=== PATIENT | male | born 1980 | race Caucasian/White ===

== ENCOUNTER 2018-10-18 08:57 | Inpatient (IN) ==
[2018-10-18] MEDS ORDERED: 0.9 % SODIUM CHLORIDE 1,000 ML IV ONE (09:01)
[2018-10-18] MEDS ORDERED: INSULIN REGULAR, HUMAN 1 UNIT/0.01 ML UNIT IV ONE (09:21)
[2018-10-18] MEDS: ONDANSETRON 4 MG/2 ML VIAL IV PRN ×2 (09:32→13:00)
[2018-10-18 09:54] LABS: Basophils # (Auto) 0 K/mcL (0.0-0.3); Basophils % (Auto) 0 % (0.0-2.0); Eosinophils # (Auto) 0 K/mcL (0.0-0.7); Eosinophils % (Auto) 0 % (0.0-7.0); Granulocytes % (Auto) 92.3 % (38.0-78.0); Lymphocytes # (Auto) 0.9 K/mcL (1.5-4.8); Lymphocytes % (Auto) 2.8 % (15.5-49.0); Mean Cell Volume 86.7 fL (80.0-100.0); Mean Corpuscular HGB Conc 32.5 g/dL (31.0-36.0); Monocytes # (Auto) 1.5 K/mcL (0.1-0.9); Monocytes % (Auto) 4.9 % (1.0-12.0); Platelet Count 416 K/mcL (140-440); RBC 5.43 M/mcL (4.50-5.90); Red Cell Distribution Width 12.8 % (11.5-14.5)
[2018-10-18] MEDS: 0.9 % SODIUM CHLORIDE 1,000 ML IV SCH ×2 (10:00→13:44)
[2018-10-18 10:11] LABS: ALT/SGPT 24 U/l (0-40); Albumin 4.7 gm/dL (3.2-5.2); Albumin/Globulin Ratio 1.6 (1.0-2.3); Alkaline Phosphatase 97 U/L (39-117); Blood Urea Nitrogen 24 mg/dl (6-20)
[2018-10-18] MEDS ORDERED: INSULIN REGULAR, HUMAN 50 UNIT in 0.9 % SODIUM CHLORIDE 99.5 ML IV SCH ×2 (10:30→13:43)
[2018-10-18 10:46] LABS: Appearance,Urine CLEAR; Bacteria,Urine 0 /hpf (0); Bilirubin,Urine NEG (NEG); Color,Urine STRAW; Glucose,Urine (UA) >=500 mg/dL (NEG); Leukocyte Esterase,Urine NEG /uL (NEG); Mucus,Urine FEW /hpf (0); Protein,Urine NEG (NEG); Specific Gravity,Urine 1.023 (1.000-1.035); Urine Blood NEG mg/dL (<0.03); Urine Hyaline Cast 1 /lpf (0-2); Urine RBC 0 /hpf (0-1); Urine Squamous Epithelial Cell 0 /hpf (0-4); Urine WBC 0 /hpf (0-4); Urobilinogen,Urine NEG (NEG)
[2018-10-18] MEDS ORDERED: PHENobarb/HYOSCY/ATROPINE/SCOP 1 DOSE BOTTLE PO ONE (11:11)
--- NOTE | 2018-10-18 11:16 | Emergency Department Note ---
Nausea/Vomiting/Diarrhea HPI - General Chief complaint: Nausea/Vomiting/Diarrhea Stated complaint: Vomiting, ran out of lantus Time Seen by Provider: 10/18/18 09:14 Source: EMS Mode of arrival: EMS Limitations: no limitations - History of Present Illness HPI Narrative: The patient is a 38-year-old male with type 1 diabetes who presents today via ambulance with his for complaints of hyperglycemia, vomiting and drifting in and out of consciousness. He and his are not currently living together but she was called this morning by him because he had been vomiting and didn't feel well. She went over to his house and reports that she saw him vomiting up dark brown-colored substance. He then collapsed on the floor and per her report was in and out of consciousness. She called 911 who brought him here. The patient states that he has been out of his Lantus for the last several days. He is normally on 38 units twice a day and then sliding scale mealtime insulin. He reports that his main symptoms right now are that his throat is burning in his having abdominal pain. Endorsing nausea and dry heaving in the room. She denies having any other significant medical illnesses. Diagnosed with type 1 diabetes 3 years ago MD complaint: nausea, vomiting, abdominal pain Onset (ago): day(s) (1) - Related Data Home Medications Medication Instructions Recorded Confirmed Insulin Aspart [Novolog] 12 unit SUB-Q QAC 08/06/18 10/18/18 Insulin Glargine, Human [Lantus] 38 unit SUB-Q QHS 08/06/18 10/18/18 Gabapentin [Neurontin] 600 mg PO PRN PRN 09/17/18 10/18/18 Allergies Allergy/AdvReac Type Severity Reaction Status Date / Time Sulfa (Sulfonamide Allergy Severe HIVES Verified 10/18/18 08:57 Antibiotics) [SULFA (SULFONAMIDE ANTIBIOTICS)] morphine AdvReac Mild Agitated Verified 10/18/18 08:57 Review of Systems All systems ED: reviewed and negative except as stated. Past Medical History - Past Medical History Attestation: Yes: The following information was validated with the patient. Source: obtained from family Medical history: Reports: DM Psychiatric history: Reports: no psych history Surgical history ED: Reports: no surgical history - Social History smoking status: Never smoker Alcohol use: Reports: Rarely Drug use: Reports: none Physical Exam Limitations: no limitations General appearance: alert, anxious, other (appears uncomfortable, curled up in a ball and holding his stomach) Head: atraumatic, normocephalic Eye: Present: normal appearance ENT: normal exam Neck: Present: normal inspection Chest: Present: normal inspection Respiratory: Present: normal lung sounds bilaterally Cardiovascular: Present: tachycardia Abdominal: Present: soft, tenderness. Absent: distention Abdominal tenderness: Present: diffuse Extremities: Present: normal inspection Back: Present: normal inspection Neurological: Present: alert Psychiatric: Present: agitated, anxious, flat affect Skin: Present: warm Course Course Narrative: Patient presenting with elevated blood glucose greater than 500 with symptoms of abdominal pain, dry heaving and vomiting. He has been out of his Lantus for several days now. He was started on normal saline IV fluids and given 10 units insulin rapid push. DKA workup was started with an ABG drawn, lab work and urinalysis. Given Zofran for nausea. - Reevaluation(s) Reevaluation #1: ABG returned showing pH of 7.24, bicarbonate of 9.4, lactate of 5.3. His white count came back elevated at 31.4. Beta hydroxybutyrate name elevated at 6.9. Symptoms settled with DKA and is supported by lab work. DKA protocol was ordered and patient was started on the insulin drip at 10 units an hour based on his weight. We are checking potassium every 2 hours. Initial potassium was 5.4. Glucose checks every hour. A consultation with the hospitalist who graciously agreed to admit the patient to the ICU for further management. Vital Signs Temperature 99.1 F H 10/18/18 08:58 Pulse Rate 127 H 10/18/18 08:58 Respiratory Rate 22 10/18/18 08:58 Blood Pressure 156/91 10/18/18 08:58 Pulse Oximetry (%) 100 10/18/18 08:58 Temperature 99.1 F H 10/18/18 08:58 Pulse Rate 112 H 10/18/18 10:14 Respiratory Rate 19 10/18/18 10:14 Blood Pressure 127/63 10/18/18 10:14 Pulse Oximetry (%) 100 10/18/18 10:14 Nausea/Vomiting/Diarrhea - [facility] Narrative Medical decision making narrative: DKA. - Lab Data Lab results reviewed: Yes I reviewed the patient's lab results. Result diagrams: 10/18/18 09:16 10/18/18 09:16 Lab Results 10/18/18 10/18/18 10/18/18 Range/Units 09:16 09:16 09:16 WBC 31.4 H* (4.5-11.0) K/mcL RBC 5.43 (4.50-5.90) M/mcL Hgb 15.3 (13.5-16.5) g/dL Hct 47.0 (41.0-55.0) % MCV 86.7 (80.0-100.0) fL MCH 28.2 (26.0-34.0) pg MCHC 32.5 (31.0-36.0) g/dL RDW 12.8 (11.5-14.5) % Plt Count 416 (140-440) K/mcL MPV 10.3 (7.4-10.4) fL Gran % 92.3 H (38.0-78.0) % Lymph % (Auto) 2.8 L (15.5-49.0) % [place] % (Auto) 4.9 (1.0-12.0) % Eos % (Auto) 0 (0.0-7.0) % Baso % (Auto) 0 (0.0-2.0) % Gran # 28.9 H (1.8-8.0) K/mcL Lymph # (Auto) 0.9 L (1.5-4.8) K/mcL [place] # (Auto) 1.5 H (0.1-0.9) K/mcL Eos # (Auto) 0 (0.0-0.7) K/mcL Baso # (Auto) 0 (0.0-0.3) K/mcL Sodium 137 (133-145) mmol/L Potassium 5.4 H (3.3-5.1) mmol/L Chloride 90 L (96-108) mmol/L Carbon Dioxide 12 L (22-30) mmol/L Anion Gap 35.0 H (8-16) BUN 24 H (6-20) mg/dl Creatinine 1.2 (0.7-1.2) mg/dl GFR Calculation 76 Glucose 610 H* (70-105) mg/dL Calcium 9.7 (8.6-10.4) mg/dl Total Bilirubin 0.8 (0.0-1.0) mg/dL AST 12 (0-37) U/l ALT 24 (0-40) U/l Alkaline Phosphatase 97 (39-117) U/L Total Protein 7.6 (5.9-8.4) gm/dL Albumin 4.7 (3.2-5.2) gm/dL Globulin 2.9 (2.2-3.7) gm/dL Albumin/Globulin Ratio 1.6 (1.0-2.3) Beta-Hydroxybutyrate 6.99 H (< 0.27) mmol/L Urine Color Urine Appearance Urine pH (5.0-9.0) Ur Specific [place] (1.000-1.035) Urine Protein (NEG) mg/dL Urine Glucose (UA) (NEG) mg/dL Urine Ketones (NEG) mg/dL Urine Occult Blood (<0.03) mg/dL Urine Nitrate (NEG) Urine Bilirubin (NEG) mg/dL Urine Urobilinogen (NEG) mg/dL Ur Leukocyte Esterase (NEG) /uL Urine RBC (0-1) /hpf Urine WBC (0-4) /hpf Ur Squamous Epith Cells (0-4) /hpf Urine Bacteria (0) /hpf Hyaline Casts (0-2) /lpf Urine Mucus (0) /hpf Ur Culture Indicated? 10/18/18 Range/Units 09:35 WBC (4.5-11.0) K/mcL RBC (4.50-5.90) M/mcL Hgb (13.5-16.5) g/dL Hct (41.0-55.0) % MCV (80.0-100.0) fL MCH (26.0-34.0) pg MCHC (31.0-36.0) g/dL RDW (11.5-14.5) % Plt Count (140-440) K/mcL MPV (7.4-10.4) fL Gran % (38.0-78.0) % Lymph % (Auto) (15.5-49.0) % [place] % (Auto) (1.0-12.0) % Eos % (Auto) (0.0-7.0) % Baso % (Auto) (0.0-2.0) % Gran # (1.8-8.0) K/mcL Lymph # (Auto) (1.5-4.8) K/mcL [place] # (Auto) (0.1-0.9) K/mcL Eos # (Auto) (0.0-0.7) K/mcL Baso # (Auto) (0.0-0.3) K/mcL Sodium (133-145) mmol/L Potassium (3.3-5.1) mmol/L Chloride (96-108) mmol/L Carbon Dioxide (22-30) mmol/L Anion Gap (8-16) BUN (6-20) mg/dl Creatinine (0.7-1.2) mg/dl GFR Calculation Glucose (70-105) mg/dL Calcium (8.6-10.4) mg/dl Total Bilirubin (0.0-1.0) mg/dL AST (0-37) U/l ALT (0-40) U/l Alkaline Phosphatase (39-117) U/L Total Protein (5.9-8.4) gm/dL Albumin (3.2-5.2) gm/dL Globulin (2.2-3.7) gm/dL Albumin/Globulin Ratio (1.0-2.3) Beta-Hydroxybutyrate (< 0.27) mmol/L Urine Color Straw Urine Appearance Clear Urine pH 5.0 (5.0-9.0) Ur Specific [place] 1.023 (1.000-1.035) Urine Protein Neg (NEG) mg/dL Urine Glucose (UA) >=500 A (NEG) mg/dL Urine Ketones 80 A (NEG) mg/dL Urine Occult Blood Neg (<0.03) mg/dL Urine Nitrate Neg (NEG) Urine Bilirubin Neg (NEG) mg/dL Urine Urobilinogen Neg (NEG) mg/dL Ur Leukocyte Esterase Neg (NEG) /uL Urine RBC 0 (0-1) /hpf Urine WBC 0 (0-4) /hpf Ur Squamous Epith Cells 0 (0-4) /hpf Urine Bacteria 0 (0) /hpf Hyaline Casts 1 (0-2) /lpf Urine Mucus Few (0) /hpf Ur Culture Indicated? No Disposition Pt seen by BIOLOGICAL TECHNICIAN/PA only: No Clinical Impression: DKA (diabetic ketoacidoses) Disposition: Xfer As Inpt ([facility]) Referrals: Lien Chen ARNP [Primary Care Provider] -
--- NOTE | 2018-10-18 13:11 | Internal Med History&Physical ---
Medical - H&P: [facility] Patient information: Note initiated : 10/18/18 at 1:08 pm Service Date, if different from initiated Date: [] Patient: Rosaura Scruggs a 38 y/o M admitted on for Vomiting, Ran Out Of Lantus. Chief Complaint: [] History of present illness: Mr. Scruggs is a 38 year old M presents to The ED with nausea vomiting abdominal pain. Patient states he ran out of his insulin about 3 4 days ago he called his pharmacy to get the medication and has not arrived yet apparently. He was trying to maintain his blood glucose with a sliding scale coverage and his blood glucose was trending up. Yesterday he developed nausea vomiting an achy burning abdominal pain. As well as some diarrhea which happens occasionally for him. Prior to running out of his insulin he was feeling fine no recent illnesses or complaints. He feels quite lethargic and weak. His called 911 who brought him in. Denies any chest pain coughing or shortness of breath. No headaches fevers or chills. In the ED he was found to be in DKA started on insulin drip and IV fluid boluses. He does seem to feel a little bit better but still quite lethargic and does have abdominal pain and nausea. Review of Systems: Pertinent positives as above. Denies headache/fever/chills/chest pain/cough/dyspnea. Remaining 10 point review of systems reviewed negative Medical - H&P: PMH Medical history: Past medical history: Diabetes type 1, chronic low back pain Past surgical history: Appendectomy and removal of a neck cyst Family history: His mother was healthy and he did not know his father Social history: Patient quit smoking 3 years ago denies alcohol use lives with a roommate. Medical - H&P: Meds Home Medications Medication Instructions Recorded Confirmed Type Insulin Aspart [Novolog] 12 unit SUB-Q QAC 08/06/18 10/18/18 History Insulin Glargine, Human [Lantus] 38 unit SUB-Q QHS 08/06/18 10/18/18 History Gabapentin [Neurontin] 600 mg PO PRN PRN 09/17/18 10/18/18 History Allergies Allergy/AdvReac Type Severity Reaction Status Date / Time Sulfa (Sulfonamide Allergy Severe HIVES Verified 10/18/18 08:57 Antibiotics) [SULFA (SULFONAMIDE ANTIBIOTICS)] morphine AdvReac Mild Agitated Verified 10/18/18 08:57 Medical - H&P: Exam - Constitutional Vitals: Temp Pulse Resp BP Pulse Ox 99.1 F H 123 H 25 H 128/72 99 10/18/18 08:58 10/18/18 13:05 10/18/18 13:05 10/18/18 13:05 10/18/18 13:05 Exam: General: Lethargic, No acute Distress Eyes/N/T: EOMI, PEERL, DMM Head/Neck: neck supple, normocephalic atraumatic CV: Tachycardic but regular, No murmurs, normal s1/s2 Pulm: Clear b/l, no wheezing/rhonchi/rales Abd: soft, tenderness to palpation throughout , decreased bowel sounds x4 Ext: no clubbing/cyanosis/edema Neuro: Lethargic, no focal deficits, moves all extremities, CN 2-12 grossly intact, symmetrical strength b/l upper/lower, sensations intact b/l upper/lower Skin: warm/dry Medical - H&P: Reslt - Labs CBC & Chem 7: 10/18/18 09:16 10/18/18 09:16 Labs: Short CBC 10/18/18 Range/Units 09:16 WBC 31.4 H* (4.5-11.0) K/mcL Hgb 15.3 (13.5-16.5) g/dL Hct 47.0 (41.0-55.0) % Plt Count 416 (140-440) K/mcL BMP 10/18/18 09:16 Sodium 137 Potassium 5.4 H Chloride 90 L Carbon Dioxide 12 L BUN 24 H Creatinine 1.2 Glucose 610 H* Calcium 9.7 Liver Function 10/18/18 Range/Units 09:16 Total Bilirubin 0.8 (0.0-1.0) mg/dL AST 12 (0-37) U/l ALT 24 (0-40) U/l Alkaline Phosphatase 97 (39-117) U/L Albumin 4.7 (3.2-5.2) gm/dL Urine 10/18/18 Range/Units 09:35 Urine Color Straw Urine Appearance Clear Urine pH 5.0 (5.0-9.0) Ur Specific [place] 1.023 (1.000-1.035) Urine Protein Neg (NEG) mg/dL Urine Glucose (UA) >=500 A (NEG) mg/dL Medical - H&P: A/P - Narrative A/P Narrative: A: *DKA: 2/2 Running out of insulin *Metabolic acidosis: Secondary to above *Prerenal azotemia: *Volume depletion: *Mild hyperkalemia: *Leukocytosis: Likely reactive * P: -IV fluid aggressive hydration -Insulin drip, DKA protocol -Monitor electrolytes closely -f/u lactate - -ppx: Lovenox/Pepcid
[2018-10-18] MEDS ORDERED: GABAPENTIN 300 MG CAPSULE PO PRN (13:43)
[2018-10-18] MEDS ORDERED: PROMETHAZINE 25 MG/ML VIAL IV PRN (13:43)
[2018-10-18] MEDS ORDERED: 0.9 % SODIUM CHLORIDE 1,000 ML IV SCH ×3 (13:43→20:00)
[2018-10-18] MEDS ORDERED: BENZOCAINE/MENTHOL 1 LOZENGE PO PRN (13:43)
[2018-10-18] MEDS ORDERED: ONDANSETRON 4 MG/2 ML VIAL IV PRN (13:43)
[2018-10-18] MEDS: 0.9 % SODIUM CHLORIDE 10 ML SYRINGE IV SCH ×2 (14:00→21:07)
[2018-10-18 14:29] LABS: ABG Methemoglobin 0.2 % (0.4-1.5); VBG HCO3 17.7 mmol/L (24.0-28.0); VBG Oxygen Saturation 88.5 % (40.0-70.0); VBG PCO2 33.5 mmHg (41.0-51.0); VBG PH 7.34 U (7.32-7.42); VBG PO2 65 mmHg (25-40); VBG Total CO2 18.7 mmol/L (25.0-29.0)
[2018-10-18 14:51] LABS: ALT/SGPT 22 U/l (0-40); Albumin 4.3 gm/dL (3.2-5.2); Albumin/Globulin Ratio 1.7 (1.0-2.3); Alkaline Phosphatase 84 U/L (39-117); Bilirubin,Direct < 0.2 mg/dL (0.0-0.3); Blood Urea Nitrogen 23 mg/dl (6-20); Gamma Glutamyl Transpeptidase 19 U/L (8-61); Uric Acid 7.2 mg/dL (2.5-8.0)
[2018-10-18] MEDS ORDERED: POTASSIUM PHOSPHATE 40 MEQ in DEXTROSE 5% IN WATER 500 ML IV ONE (15:09)
[2018-10-18] MEDS ORDERED: DEXTROSE 5%-NS 1,000 ML IV SCH (17:15)
[2018-10-18 19:08] LABS: ALT/SGPT 19 U/l (0-40); Albumin 4.2 gm/dL (3.2-5.2); Albumin/Globulin Ratio 1.8 (1.0-2.3); Alkaline Phosphatase 79 U/L (39-117); Bilirubin,Direct < 0.2 mg/dL (0.0-0.3); Blood Urea Nitrogen 23 mg/dl (6-20); Gamma Glutamyl Transpeptidase 14 U/L (8-61); Uric Acid 7.1 mg/dL (2.5-8.0)
[2018-10-18] MEDS ORDERED: PHOSPHORUS 250 MG TABLET PO ONE (20:05)
[2018-10-18] MEDS: 0.45 % SODIUM CHLORIDE 1,000 ML IV SCH (20:32)
[2018-10-18] MEDS: ACETAMINOPHEN 325 MG TABLET PO PRN (20:40)
[2018-10-18] MEDS ORDERED: INSULIN GLARGINE, HUMAN 1 UNIT/0.01 ML SQ SCH (21:00)
[2018-10-18] MEDS: FAMOTIDINE/PF 20 MG/2 ML VIAL IV SCH (21:01)
[2018-10-19] MEDS: INSULIN LISPRO 1 UNIT/0.01 ML UNIT SQ SCH ×7 (00:18→22:00)
[2018-10-19] MEDS: 0.45 % SODIUM CHLORIDE 1,000 ML IV SCH (03:30)
[2018-10-19] MEDS: 0.9 % SODIUM CHLORIDE 10 ML SYRINGE IV SCH ×4 (05:17→22:04)
[2018-10-19 06:31] LABS: Basophils # (Auto) 0 K/mcL (0.0-0.3); Basophils % (Auto) 0 % (0.0-2.0); Eosinophils # (Auto) 0 K/mcL (0.0-0.7); Eosinophils % (Auto) 0 % (0.0-7.0); Granulocytes % (Auto) 86.4 % (38.0-78.0); Lymphocytes # (Auto) 1.7 K/mcL (1.5-4.8); Lymphocytes % (Auto) 7.9 % (15.5-49.0); Mean Cell Volume 86.9 fL (80.0-100.0); Mean Corpuscular HGB Conc 32.8 g/dL (31.0-36.0); Monocytes # (Auto) 1.3 K/mcL (0.1-0.9); Monocytes % (Auto) 5.7 % (1.0-12.0); Platelet Count 291 K/mcL (140-440); RBC 4.42 M/mcL (4.50-5.90); Red Cell Distribution Width 13.4 % (11.5-14.5)
[2018-10-19] MEDS ORDERED: INSULIN REGULAR, HUMAN 50 UNIT in 0.9 % SODIUM CHLORIDE 99.5 ML IV PRN ×2 (06:45→10:37)
[2018-10-19 07:12] LABS: ALT/SGPT 16 U/l (0-40); Albumin 3.7 gm/dL (3.2-5.2); Albumin/Globulin Ratio 1.9 (1.0-2.3); Alkaline Phosphatase 72 U/L (39-117); Bilirubin,Direct < 0.2 mg/dL (0.0-0.3); Blood Urea Nitrogen 17 mg/dl (6-20); Gamma Glutamyl Transpeptidase 10 U/L (8-61); Uric Acid 5.9 mg/dL (2.5-8.0)
--- NOTE | 2018-10-19 07:17 | Internal Med Progress Note ---
Medical - PN: Subj Patient information: Note initiated : 10/19/18 at 7:11 am Service Date, if different from initiated Date: [] Patient: Rosaura Scruggs a 38 y/o M admitted on 10/18/18 for Vomiting, Ran Out Of Lantus. Chief Complaint: [] Interval history: Mr. Scruggs is a 38 year old M presents to The ED with nausea vomiting abdominal pain. Patient states he ran out of his insulin about 3 4 days ago he called his pharmacy to get the medication and has not arrived yet apparently. He was trying to maintain his blood glucose with a sliding scale coverage and his blood glucose was trending up. Yesterday he developed nausea vomiting an achy burning abdominal pain. As well as some diarrhea which happens occasionally for him. Prior to running out of his insulin he was feeling fine no recent illnesses or complaints. He feels quite lethargic and weak. His called 911 who brought him in. Denies any chest pain coughing or shortness of breath. No headaches fevers or chills. In the ED he was found to be in DKA started on insulin drip and IV fluid boluses. He does seem to feel a little bit better but still quite lethargic and does have abdominal pain and nausea. 15 Feeling better. Has heartburn, no abdominal pain. No vomiting. Does have a headache. Review of Systems: denies fever/chills/nausea/vomiting/abdominal pain/cough/dyspnea/diarrhea. Otherwise see above. - Constitutional Vitals: Vital Signs Temp Pulse Resp BP Pulse Ox 98.8 F 76 18 135/78 100 10/19/18 00:00 10/19/18 04:00 10/19/18 04:20 10/19/18 04:00 10/19/18 04:00 Period Temp Pulse Resp BP Sys/[place] Pulse Ox Last 24 Hr 98.8 F-100.8 F 71-131 11-29 103-156/55-131 96-100 Intake and Output 10/18/18 10/19/18 10/19/18 21:59 05:59 13:59 Intake Total 1744 1150 Output Total 250 275 Balance 1494 875 Weight 98.933 kg Intake & Output: Intake & Output 10/18/18 10/19/18 10/19/18 21:59 05:59 13:59 Intake Total 1744 1150 Output Total 250 275 Balance 1494 875 Weight 98.933 kg Intake: IV 1214 1000 Sodium Chloride 0.45% 1,000 ml 1000 @ 150 mls/hr IV .Q6H40M [facility] Rx# :[id number] Sodium Chloride 0.9% 1,000 ml @ 1018 150 mls/hr IV .Q6H40M [facility] Rx#: [id number] HumuLIN R 50 UNIT In Sodium 183 Chloride 0.9% 99.5 ml @ 10 UNIT /HR 20 mls/hr IV DUR [facility] Rx#: [id number] Oral 530 150 Output: Void Amount 250 275 Other: Meal Dinner Percent of Meal Consumed 75% Feeding Ability Assist with Tray Set Up Urine Color Dark Yellow Dark Yellow Urine Odor Strong Strong Exam: General: awake, No acute Distress Eyes/N/T: EOMI, , Head/Neck: neck supple, CV: RRR, No murmurs, Pulm: Clear b/l, no wheezing/rhonchi/rales Abd: soft, +BSx4 Ext: no clubbing/cyanosis/edema Neuro: awake, no focal deficits, moves all extremities, Skin: warm/dry Medical - PN: Obj Da - Labs CBC & Chem 7: 10/19/18 03:55 10/19/18 03:55 Labs: Abnormal Lab Results 10/19/18 10/18/18 10/18/18 03:55 18:00 14:00 WBC 22.1 H RBC 4.42 L Hgb 12.6 L Hct 38.4 L Gran % 86.4 H Lymph % (Auto) 7.9 L Gran # 19.1 H Lymph # (Auto) [place] # (Auto) 1.3 H ABG Methemoglobin VBG pCO2 VBG pO2 VBG HCO3 VBG Total CO2 VBG O2 Saturation VBG Base Excess VBG Lactic Acid < 0.2 L Carboxyhemoglobin Potassium Chloride Carbon Dioxide POC Total CO2 Anion Gap POC BUN BUN 23 H Creatinine Glucose 208 H POC Glucose POC WB Ioniz Calcium Phosphorus 1.9 L Triglycerides Beta-Hydroxybutyrate Urine Glucose (UA) Urine Ketones 10/18/18 10/18/18 10/18/18 14:00 13:59 11:21 WBC RBC Hgb Hct Gran % Lymph % (Auto) Gran # Lymph # (Auto) [place] # (Auto) ABG Methemoglobin 0.2 L VBG pCO2 33.5 L VBG pO2 65 H VBG HCO3 17.7 L VBG Total CO2 18.7 L VBG O2 Saturation 88.5 H VBG Base Excess -7.0 L VBG Lactic Acid Carboxyhemoglobin 3.6 H Potassium Chloride Carbon Dioxide 17 L POC Total CO2 14 L Anion Gap 20.0 H POC BUN 25 H BUN 23 H Creatinine 1.3 H Glucose 308 H POC Glucose 448 H POC WB Ioniz Calcium 1.13 L Phosphorus 1.6 L Triglycerides 152 H Beta-Hydroxybutyrate Urine Glucose (UA) Urine Ketones 10/18/18 10/18/18 10/18/18 09:35 09:16 09:16 WBC RBC Hgb Hct Gran % Lymph % (Auto) Gran # Lymph # (Auto) [place] # (Auto) ABG Methemoglobin VBG pCO2 VBG pO2 VBG HCO3 VBG Total CO2 VBG O2 Saturation VBG Base Excess VBG Lactic Acid Carboxyhemoglobin Potassium 5.4 H Chloride 90 L Carbon Dioxide 12 L POC Total CO2 Anion Gap 35.0 H POC BUN BUN 24 H Creatinine Glucose 610 H* POC Glucose POC WB Ioniz Calcium Phosphorus Triglycerides Beta-Hydroxybutyrate 6.99 H Urine Glucose (UA) >=500 A Urine Ketones 80 A 10/18/18 09:16 WBC 31.4 H* RBC Hgb Hct Gran % 92.3 H Lymph % (Auto) 2.8 L Gran # 28.9 H Lymph # (Auto) 0.9 L [place] # (Auto) 1.5 H ABG Methemoglobin VBG pCO2 VBG pO2 VBG HCO3 VBG Total CO2 VBG O2 Saturation VBG Base Excess VBG Lactic Acid Carboxyhemoglobin Potassium Chloride Carbon Dioxide POC Total CO2 Anion Gap POC BUN BUN Creatinine Glucose POC Glucose POC WB Ioniz Calcium Phosphorus Triglycerides Beta-Hydroxybutyrate Urine Glucose (UA) Urine Ketones Meds: Medications Acetaminophen (Tylenol) 650 mg PO Q4-6HP PRN PRN Reason: PAIN/FEVER > 101 Last Admin: 10/18/18 20:40 Dose: 650 mg Documented by: Diagnostic Test (Pha) (Accu-Chek) 1 each FS Q4 [facility] Enoxaparin Sodium (Lovenox) 40 mg SQ DAILY [facility] Famotidine (Pepcid) 20 mg IV Q12 [facility] Last Admin: 10/18/18 21:01 Dose: 20 mg Documented by: Gabapentin (Neurontin) 600 mg PO PRN PRN PRN Reason: Pain Sodium Chloride (Sodium Chloride 0.45%) 1,000 mls @ 150 mls/hr IV .Q6H40M [facility] Stop: 10/19/18 09:34 Last Admin: 10/19/18 03:30 Dose: 150 mls/hr Documented by: Insulin Human Regular 50 unit/ (Sodium Chloride) 100 mls @ 20 mls/hr IV Q12HP PRN; Protocol PRN Reason: HYPERGLYCEMIA Insulin Glargine (Lantus) 38 unit SQ QHS [facility] Last Admin: 10/18/18 19:50 Dose: 38 units Documented by: Insulin Human Lispro (Humalog) 0 unit SQ Q4 [facility]; Protocol Last Admin: 10/19/18 04:11 Dose: 6 units Documented by: Morphine Sulfate (Morphine) 1 - 2 mg IV Q3HP PRN PRN Reason: PAIN LEVEL > 6 Ondansetron HCl (Zofran) 4 mg IV Q4-6HP PRN PRN Reason: Nausea And Vomiting Promethazine HCl (Phenergan) 12.5 mg IV Q4-6HP PRN PRN Reason: Nausea And Vomiting Last Admin: 10/18/18 14:00 Dose: 12.5 mg Documented by: Sodium Chloride (Saline Flush) 10 ml IV Q8 [facility] Last Admin: 10/19/18 05:17 Dose: 10 ml Documented by: Throat Lozenges (Cepacol) 1 lozenge PO PRN PRN PRN Reason: Sore Throat - ABG Interpretation ABG results: 10/18/18 13:59 ABG Methemoglobin 0.2 L VBG pH 7.34 VBG pCO2 33.5 L VBG pO2 65 H VBG HCO3 17.7 L VBG Total CO2 18.7 L VBG O2 Saturation 88.5 H VBG Base Excess -7.0 L Medical - PN: A/P - Time Spent With Patient Total time spent is greater than 50% in coordination of care (as documented) at patient's floor/unit and/or counseling patient: - Narrative A/P Narrative: A: *DKA: 2/2 Running out of insulin -A1c 8.2 *Metabolic acidosis: Secondary to above, resolved *Prerenal azotemia: improved *Volume depletion: resolved *Mild hyperkalemia: resolved *Leukocytosis: no bandemia, Likely reactive; improving w/o abx. CXR/UA unremarkable *hypophos: P: -finish IVF's, advance diet as tolerated -off Insulin drip to basal and SSI -titrate insulin -replete electrolytes - -ppx: Lovenox/Pepcid Medical - PN: Qual - Stroke Symptom Onset Unknown: No - VTE Deep Vein Thrombosis/Pulmonary Embolism Present on Admission: No
[2018-10-19 08:15] LABS: Band Neutrophils % 2 % (0-10); Lymphocytes % 13 % (15-49); Monocytes % (Manual) 5 % (1-12); Platelet Estimate NORMAL (NORMAL); RBC Morphology NORMAL (NORMAL); Segmented Neutrophils % 80 % (38-78)
[2018-10-19] MEDS: FAMOTIDINE/PF 20 MG/2 ML VIAL IV SCH ×2 (08:20→22:03)
--- NOTE | 2018-10-19 08:22 | XRay Report ---
CLINICAL INFORMATION: leukocytosis COMPARISON: 04/10/2016 FINDINGS: The heart size, mediastinum and pulmonary vessels are unremarkable. The lungs are clear. There are no effusions. The bones and soft tissues are within normal limits. IMPRESSION: Normal chest. Interpreted and Authenticated by: Derick William 10/19/18
[2018-10-19 08:28] LABS: Hemoglobin A1C 8.2 % HGB (4.0-6.0)
[2018-10-19] MEDS ORDERED: NEUTRA PHOS 1 PACKET PO SCH ×2 (09:00→21:00)
[2018-10-19] MEDS ORDERED: ENOXAPARIN 40 MG/0.4 ML SYRINGE SQ SCH (09:00)
[2018-10-19] MEDS: ACETAMINOPHEN 325 MG TABLET PO PRN ×2 (10:08→16:24)
[2018-10-19] MEDS ORDERED: CALCIUM CARBONATE 500 MG TAB.CHEW CHEWED PRN ×2 (10:22→10:37)
[2018-10-19] MEDS ORDERED: PROMETHAZINE 25 MG/ML VIAL IV PRN (10:37)
[2018-10-19] MEDS ORDERED: ONDANSETRON 4 MG/2 ML VIAL IV PRN (10:37)
[2018-10-19] MEDS ORDERED: BENZOCAINE/MENTHOL 1 LOZENGE PO PRN (10:37)
[2018-10-19] MEDS ORDERED: GABAPENTIN 300 MG CAPSULE PO PRN (10:37)
[2018-10-19] MEDS ORDERED: NAPROXEN 250 MG TABLET PO ONE (11:12)
--- NOTE | 2018-10-19 11:20 | Discharge Summary ---
Medical - DS: Prov Patient information: Note initiated : 10/19/18 at 11:18 am Service Date, if different from initiated Date: [] Patient: Rosaura Scruggs 38 y/o M admitted on 10/18/18 for Vomiting, Ran Out Of Lantus. Chief Complaint: [] Date of admission: 10/18/18 13:20 Discharge date: 10/20/18 Primary care physician: Lien Chen Consults: 10/18/18 Consult to Physician [CONS] Stat Comment: Consulting Provider: Doug Prajapati Reason For Exam: Physician to Consult Medical - DS: Meds - Discharge Medications Active and Home Medications: Home Medications Insulin Aspart [Novolog] 12 unit SUB-Q QAC 08/06/18 [History Confirmed 10/18/18 Last Taken 08/06/18 02:30] Insulin Glargine, Human [Lantus] 38 unit SUB-Q QHS 08/06/18 [History Confirmed 10/18/18 Last Taken 08/05/18 17:00] Gabapentin [Neurontin] 600 mg PO BIDP PRN 09/17/18 [History Confirmed 10/19/18 Last Taken Unknown] Medical - DS: Hosp Hospital course: Mr. Scruggs is a 38 year old M Mr. Scruggs is a 38 year old M presents to The ED with nausea vomiting abdominal pain. Patient states he ran out of his insulin about 3 4 days ago he called his pharmacy to get the medication and has not arrived yet apparently. He was trying to maintain his blood glucose with a sliding scale coverage and his blood glucose was trending up. Yesterday he developed nausea vomiting an achy burning abdominal pain. As well as some diarrhea which happens occasionally for him. Prior to running out of his insulin he was feeling fine no recent illnesses or complaints. He feels quite lethargic and weak. His called 911 who brought him in. Denies any chest pain coughing or shortness of breath. No headaches fevers or chills. In the ED he was found to be in DKA started on insulin drip and IV fluid boluses. He does seem to feel a little bit better but still quite lethargic and does have abdominal pain and nausea. 10/19 Feeling better. Has heartburn, no abdominal pain. No vomiting. Does have a headache. 10/20 Continues to feel better still has sore throat but improving. Tolerating diet. Stable for discharge. Discharge diagnosis: DKA volume depletion metabolic acidosis prerenal azotemia electrolyte abnor - Time Spent with Patient Total time spent providing and/or coordinating discharge services: Greater than 30 minutes Medical - DS: Exam - Constitutional Vitals: Vital Signs Temp Pulse Pulse Resp BP BP BP 10/19/18 08:03 98.6 F 78 19 136/94 10/19/18 04:20 18 10/19/18 04:15 14 10/19/18 04:10 18 10/19/18 04:05 15 10/19/18 04:00 76 18 135/78 10/19/18 02:00 71 17 10/19/18 00:00 98.8 F 83 19 123/79 10/18/18 22:45 17 10/18/18 22:40 17 10/18/18 22:35 19 10/18/18 22:30 17 10/18/18 22:25 17 10/18/18 22:00 18 10/18/18 21:45 18 10/18/18 21:40 18 10/18/18 21:35 18 10/18/18 21:30 17 10/18/18 21:25 17 10/18/18 21:20 17 10/18/18 21:15 17 10/18/18 21:10 18 10/18/18 21:05 21 10/18/18 21:01 18 10/18/18 21:00 18 112/70 10/18/18 20:55 19 10/18/18 20:50 15 10/18/18 20:45 21 10/18/18 20:40 17 10/18/18 20:35 18 10/18/18 20:30 18 10/18/18 20:25 19 10/18/18 20:20 17 10/18/18 20:15 17 10/18/18 20:10 18 10/18/18 20:05 18 10/18/18 20:01 18 10/18/18 20:00 100.8 F H 83 17 113/76 10/18/18 19:55 17 10/18/18 19:50 18 10/18/18 19:45 20 10/18/18 19:40 17 10/18/18 19:35 21 10/18/18 19:30 24 H 10/18/18 19:25 16 10/18/18 19:20 18 10/18/18 19:15 16 10/18/18 19:10 17 10/18/18 19:05 21 10/18/18 19:01 15 10/18/18 19:00 17 116/64 10/18/18 18:55 19 10/18/18 18:50 19 10/18/18 18:45 20 10/18/18 18:40 20 10/18/18 18:35 21 10/18/18 18:30 15 10/18/18 18:25 19 10/18/18 18:21 19 10/18/18 18:20 22 114/76 10/18/18 18:15 16 10/18/18 18:10 14 10/18/18 18:05 19 10/18/18 18:00 18 10/18/18 17:55 11 L 10/18/18 17:50 21 10/18/18 17:45 19 10/18/18 17:40 11 L 10/18/18 17:35 17 10/18/18 17:30 16 114/76 10/18/18 17:25 17 10/18/18 17:20 16 10/18/18 17:15 92 H 15 10/18/18 17:10 97 H 16 10/18/18 17:05 90 15 10/18/18 17:01 91 H 17 10/18/18 17:00 96 H 17 117/69 10/18/18 16:55 96 H 16 10/18/18 16:50 100 H 18 10/18/18 16:45 96 H 18 10/18/18 16:40 100 H 16 10/18/18 16:35 95 H 18 10/18/18 16:30 93 H 17 10/18/18 16:25 98 H 17 10/18/18 16:20 91 H 17 10/18/18 16:15 94 H 17 10/18/18 16:10 93 H 17 10/18/18 16:05 102 H 20 10/18/18 16:01 100 H 15 104/83 10/18/18 16:00 99.5 F H 111 H 21 10/18/18 15:55 99 H 16 10/18/18 15:50 98 H 16 10/18/18 15:45 111 H 16 10/18/18 15:40 100 H 17 10/18/18 15:35 99 H 16 10/18/18 15:30 100 H 16 10/18/18 15:25 98 H 16 10/18/18 15:20 97 H 16 10/18/18 15:15 99 H 16 10/18/18 15:10 94 H 16 104/83 10/18/18 15:05 95 H 17 10/18/18 15:03 97 H 15 103/55 10/18/18 15:00 97 H 17 10/18/18 14:55 95 H 14 10/18/18 14:50 99 H 17 10/18/18 14:45 102 H 18 10/18/18 14:40 100 H 17 10/18/18 14:35 101 H 18 10/18/18 14:30 101 H 19 10/18/18 14:25 100 H 18 10/18/18 14:20 103 H 18 10/18/18 14:15 106 H 17 10/18/18 14:10 105 H 18 10/18/18 14:05 109 H 18 103/55 10/18/18 14:02 113 H 19 10/18/18 14:01 108 H 22 124/71 10/18/18 14:00 112 H 19 10/18/18 13:55 108 H 27 H 10/18/18 13:50 105 H 18 10/18/18 13:45 110 H 19 10/18/18 13:40 109 H 18 10/18/18 13:35 16 10/18/18 13:34 127/74 10/18/18 13:20 99.7 F H 20 127/74 10/18/18 13:16 115 H 18 117/73 10/18/18 13:15 113 H 18 10/18/18 13:10 116 H 19 10/18/18 13:05 123 H 25 H 128/72 10/18/18 13:01 113 H 21 128/72 10/18/18 12:46 125 H 29 H 108/64 10/18/18 12:31 110 H 18 117/68 10/18/18 12:16 121 H 19 132/56 10/18/18 12:05 109 H 20 118/67 10/18/18 12:01 111 H 18 118/67 10/18/18 11:46 109 H 24 H 131/76 10/18/18 11:44 106 H 20 150/110 10/18/18 11:35 110 H 22 150/110 Pulse Ox 10/19/18 08:03 100 10/19/18 04:20 10/19/18 04:15 10/19/18 04:10 10/19/18 04:05 10/19/18 04:00 100 10/19/18 02:00 10/19/18 00:00 99 10/18/18 22:45 10/18/18 22:40 10/18/18 22:35 10/18/18 22:30 10/18/18 22:25 10/18/18 22:00 10/18/18 21:45 10/18/18 21:40 10/18/18 21:35 10/18/18 21:30 10/18/18 21:25 10/18/18 21:20 10/18/18 21:15 10/18/18 21:10 10/18/18 21:05 10/18/18 21:01 10/18/18 21:00 10/18/18 20:55 10/18/18 20:50 10/18/18 20:45 10/18/18 20:40 10/18/18 20:35 10/18/18 20:30 10/18/18 20:25 10/18/18 20:20 10/18/18 20:15 10/18/18 20:10 10/18/18 20:05 10/18/18 20:01 10/18/18 20:00 98 10/18/18 19:55 10/18/18 19:50 10/18/18 19:45 10/18/18 19:40 10/18/18 19:35 10/18/18 19:30 10/18/18 19:25 10/18/18 19:20 10/18/18 19:15 10/18/18 19:10 10/18/18 19:05 10/18/18 19:01 10/18/18 19:00 10/18/18 18:55 10/18/18 18:50 10/18/18 18:45 10/18/18 18:40 10/18/18 18:35 10/18/18 18:30 10/18/18 18:25 10/18/18 18:21 10/18/18 18:20 10/18/18 18:15 10/18/18 18:10 10/18/18 18:05 10/18/18 18:00 10/18/18 17:55 10/18/18 17:50 10/18/18 17:45 10/18/18 17:40 10/18/18 17:35 10/18/18 17:30 10/18/18 17:25 10/18/18 17:20 10/18/18 17:15 97 10/18/18 17:10 97 10/18/18 17:05 96 10/18/18 17:01 97 10/18/18 17:00 97 10/18/18 16:55 97 10/18/18 16:50 98 10/18/18 16:45 98 10/18/18 16:40 97 10/18/18 16:35 96 10/18/18 16:30 96 10/18/18 16:25 97 10/18/18 16:20 97 10/18/18 16:15 97 10/18/18 16:10 98 10/18/18 16:05 99 10/18/18 16:01 100 10/18/18 16:00 98 10/18/18 15:55 99 10/18/18 15:50 99 10/18/18 15:45 99 10/18/18 15:40 99 10/18/18 15:35 99 10/18/18 15:30 99 10/18/18 15:25 99 10/18/18 15:20 99 10/18/18 15:15 98 10/18/18 15:10 99 10/18/18 15:05 100 10/18/18 15:03 100 10/18/18 15:00 99 10/18/18 14:55 100 10/18/18 14:50 100 10/18/18 14:45 98 10/18/18 14:40 98 10/18/18 14:35 98 10/18/18 14:30 98 10/18/18 14:25 98 10/18/18 14:20 98 10/18/18 14:15 98 10/18/18 14:10 98 10/18/18 14:05 98 03/14/19 14:02 100 10/18/18 14:01 99 10/18/18 14:00 100 10/18/18 13:55 99 10/18/18 13:50 99 10/18/18 13:45 99 10/18/18 13:40 100 10/18/18 13:35 10/18/18 13:34 10/18/18 13:20 100 10/18/18 13:16 98 10/18/18 13:15 99 10/18/18 13:10 99 10/18/18 13:05 99 10/18/18 13:01 98 10/18/18 12:46 100 10/18/18 12:31 98 10/18/18 12:16 100 10/18/18 12:05 99 10/18/18 12:01 99 10/18/18 11:46 100 10/18/18 11:44 100 10/18/18 11:35 99 Intake and Output 10/18/18 10/19/18 10/19/18 21:59 05:59 13:59 Intake Total 1744 1150 500 Output Total 250 275 500 Balance 1494 875 0 Intake: IV 1214 1000 Sodium Chloride 0.45% 1,000 ml 1000 @ 150 mls/hr IV .Q6H40M COLLIN Rx# :[id number] Sodium Chloride 0.9% 1,000 ml @ 1018 150 mls/hr IV .Q6H40M COLLIN Rx#: [id number] HumuLIN R 50 UNIT In Sodium 183 Chloride 0.9% 99.5 ml @ 10 UNIT /HR 20 mls/hr IV DUR COLLIN Rx#: [id number] Oral 530 150 500 Output: Void Amount 250 275 500 Other: Meal Dinner Breakfast Percent of Meal Consumed 75% 75% Feeding Ability Assist with Tray Set Up Independent Urine Color Dark Yellow Dark Yellow Urine Odor Strong Strong Weight 98.933 kg Medical - DS: Data Labs on day of discharge: Labs from last 24 hours 10/19/18 10/19/18 10/19/18 03:55 03:55 03:55 WBC RBC Hgb Hct POC Hct MCV MCH MCHC RDW Plt Count MPV Gran % Lymph % (Auto) Walton % (Auto) Eos % (Auto) Baso % (Auto) Gran # Lymph # (Auto) Walton # (Auto) Eos # (Auto) Baso # (Auto) Total Counted 100 Seg Neutrophils % 80 H Band Neutrophils % 2 Lymphocytes % 13 L Monocytes % (Manual) 5 Platelet Estimate Normal RBC Morphology Normal ABG Methemoglobin VBG pH VBG pCO2 VBG pO2 VBG HCO3 VBG Total CO2 VBG O2 Saturation VBG Base Excess VBG Lactic Acid Carboxyhemoglobin Total Hemoglobin O2 Delivery Level POC Sodium Sodium 142 POC Potassium Potassium 4.3 POC Chloride Chloride 106 Carbon Dioxide 23 POC Total CO2 Anion Gap 13.0 POC BUN BUN 17 Creatinine 0.9 POC Creatinine GFR Calculation 108 Glucose 213 H POC Glucose Hemoglobin A1c 8.2 H Estim Average Glucose 189 Uric Acid 5.9 Calcium 8.1 L POC WB Ioniz Calcium Phosphorus 2.0 L Magnesium 2.1 Total Bilirubin 0.7 Direct Bilirubin < 0.2 GGT 10 AST 10 ALT 16 Alkaline Phosphatase 72 Lactate Dehydrogenase 152 Total Protein 5.7 L Albumin 3.7 Globulin 2.0 L Albumin/Globulin Ratio 1.9 Triglycerides 48 10/19/18 10/18/18 10/18/18 03:55 18:00 14:00 WBC 22.1 H RBC 4.42 L Hgb 12.6 L Hct 38.4 L POC Hct MCV 86.9 MCH 28.5 MCHC 32.8 RDW 13.4 Plt Count 291 MPV 10.0 Gran % 86.4 H Lymph % (Auto) 7.9 L Walton % (Auto) 5.7 Eos % (Auto) 0 Baso % (Auto) 0 Gran # 19.1 H Lymph # (Auto) 1.7 Walton # (Auto) 1.3 H Eos # (Auto) 0 Baso # (Auto) 0 Total Counted Seg Neutrophils % Band Neutrophils % Lymphocytes % Monocytes % (Manual) Platelet Estimate RBC Morphology ABG Methemoglobin VBG pH VBG pCO2 VBG pO2 VBG HCO3 VBG Total CO2 VBG O2 Saturation VBG Base Excess VBG Lactic Acid < 0.2 L Carboxyhemoglobin Total Hemoglobin O2 Delivery Level POC Sodium Sodium 143 POC Potassium Potassium 3.8 POC Chloride Chloride 107 Carbon Dioxide 25 POC Total CO2 Anion Gap 11.0 POC BUN BUN 23 H Creatinine 1.0 POC Creatinine GFR Calculation 95 Glucose 208 H POC Glucose Hemoglobin A1c Estim Average Glucose Uric Acid 7.1 Calcium 8.7 POC WB Ioniz Calcium Phosphorus 1.9 L Magnesium 2.1 Total Bilirubin 0.4 Direct Bilirubin < 0.2 GGT 14 AST 10 ALT 19 Alkaline Phosphatase 79 Lactate Dehydrogenase 144 Total Protein 6.6 Albumin 4.2 Globulin 2.4 Albumin/Globulin Ratio 1.8 Triglycerides 106 10/18/18 10/18/18 10/18/18 14:00 13:59 11:21 WBC RBC Hgb Hct POC Hct 44.0 MCV MCH MCHC RDW Plt Count MPV Gran % Lymph % (Auto) Walton % (Auto) Eos % (Auto) Baso % (Auto) Gran # Lymph # (Auto) Walton # (Auto) Eos # (Auto) Baso # (Auto) Total Counted Seg Neutrophils % Band Neutrophils % Lymphocytes % Monocytes % (Manual) Platelet Estimate RBC Morphology ABG Methemoglobin 0.2 L VBG pH 7.34 VBG pCO2 33.5 L VBG pO2 65 H VBG HCO3 17.7 L VBG Total CO2 18.7 L VBG O2 Saturation 88.5 H VBG Base Excess -7.0 L VBG Lactic Acid Carboxyhemoglobin 3.6 H Total Hemoglobin 14.2 O2 Delivery Level Not Reportable POC Sodium 141 Sodium 141 POC Potassium 4.0 Potassium 3.8 POC Chloride 105 Chloride 104 Carbon Dioxide 17 L POC Total CO2 14 L Anion Gap 20.0 H POC BUN 25 H BUN 23 H Creatinine 1.3 H POC Creatinine 0.9 GFR Calculation 69 Glucose 308 H POC Glucose 448 H Hemoglobin A1c Estim Average Glucose Uric Acid 7.2 Calcium 8.9 POC WB Ioniz Calcium 1.13 L Phosphorus 1.6 L Magnesium 2.2 Total Bilirubin 0.5 Direct Bilirubin < 0.2 GGT 19 AST 10 ALT 22 Alkaline Phosphatase 84 Lactate Dehydrogenase 157 Total Protein 6.8 Albumin 4.3 Globulin 2.5 Albumin/Globulin Ratio 1.7 Triglycerides 152 H Medical - DS: A/P - Patient/Caregiver Discharge Instructions Activity: increase activity as tolerated Diet: Consistent Carbohydrate - Follow up Plan Follow up with: Lien Chen ARNP [Primary Care Provider] - Disposition: Home, Self-Care Prognosis: Good Rehab Potential: Good Overall status at discharge: patient is back to baseline Medical - DS: Qual - VTE Deep Vein Thrombosis/Pulmonary Embolism Present on Admission: No
[2018-10-19] MEDS ORDERED: INSULIN LISPRO 1 UNIT/0.01 ML UNIT SQ SCH (12:00)
[2018-10-19] MEDS ORDERED: INSULIN GLARGINE, HUMAN 1 UNIT/0.01 ML SQ SCH (21:00)
[2018-10-20] MEDS: ACETAMINOPHEN 325 MG TABLET PO PRN ×2 (04:33→09:21)
[2018-10-20 06:43] LABS: Basophils # (Auto) 0 K/mcL (0.0-0.3); Basophils % (Auto) 0.3 % (0.0-2.0); Eosinophils # (Auto) 0.1 K/mcL (0.0-0.7); Eosinophils % (Auto) 0.5 % (0.0-7.0); Granulocytes % (Auto) 75.7 % (38.0-78.0); Lymphocytes # (Auto) 1.9 K/mcL (1.5-4.8); Lymphocytes % (Auto) 16.7 % (15.5-49.0); Mean Cell Volume 86.7 fL (80.0-100.0); Monocytes # (Auto) 0.8 K/mcL (0.1-0.9); Monocytes % (Auto) 6.8 % (1.0-12.0); Platelet Count 255 K/mcL (140-440); RBC 4.47 M/mcL (4.50-5.90)
[2018-10-20 07:11] LABS: ALT/SGPT 16 U/l (0-40); Albumin 3.8 gm/dL (3.2-5.2); Albumin/Globulin Ratio 1.7 (1.0-2.3); Alkaline Phosphatase 76 U/L (39-117); Bilirubin,Direct < 0.2 mg/dL (0.0-0.3); Blood Urea Nitrogen 10 mg/dl (6-20); Gamma Glutamyl Transpeptidase 12 U/L (8-61)
[2018-10-20] MEDS: INSULIN LISPRO 1 UNIT/0.01 ML UNIT SQ SCH (08:03)
[2018-10-20] MEDS: 0.9 % SODIUM CHLORIDE 10 ML SYRINGE IV SCH (08:05)
[2018-10-20] MEDS ORDERED: ENOXAPARIN 40 MG/0.4 ML SYRINGE SQ SCH (09:00)
[2018-10-20] MEDS: FAMOTIDINE/PF 20 MG/2 ML VIAL IV SCH (09:21)
== END 2018-10-20 11:53 | disposition home or self-care (01) | DRG 639 ==
LOC: ED 08:57 → ICU 13:20 → MEDSUR 10-19 12:10
PROVIDERS: ADMIT Internal Medicine; ATTEND Internal Medicine